=== PATIENT | female | born 1935 | race Caucasian/White ===

== ENCOUNTER 2017-08-07 05:30 | Emergency (ER) | payer OTHER, MEDICARE ==
[~2017-08-07] VITALS: Ht 137.2 cm; Wt 36.6 kg
[2017-08-07] MEDS ORDERED: PRINZIDE 10-121 EACH PO (05:42)
[2017-08-07] MEDS ORDERED: ATIVAN0.5 MG PO (05:42)
[2017-08-07 08:27] LABS: APPEARANCE SL.HAZY ((CLEAR)); BILIRUBIN NEGATIVE; BLOOD SMALL; COLOR YELLOW ((YELLOW)); GLUCOSE (STRIP) NEGATIVE; KETONES NEGATIVE; LEUKOCYTES LARGE; NITRITE NEGATIVE; PROTEIN (STRIP) NEGATIVE; SPECIFIC GRAVITY 1.015 (1.000-1.030); UROBILINOGEN 0.2 MG/DL (0.2-1.0)
[2017-08-07 08:31] LABS: BACTERIA 1+ /HPF; EPITHELIAL CELLS 1+ /HPF; HYALINE CASTS 0-5 /LPF; MUCUS TRACE /LPF; RED BLOOD CELLS 0-5 /HPF (0-5); UCUL ADDED? YES
[2017-08-07] MEDS ORDERED: BACTRIM,SEPT1 TABLET PO (08:55)
[2017-08-07] MEDS ORDERED: ULTRAM50 MG PO (08:56)
[2017-08-07] MEDS ORDERED: LIDODERM 5% P1 PATCH TD (08:56)
[2017-08-07 09:26] VITALS: BP 107/78
== END 2017-08-07 09:27 | disposition home or self-care (01) ==
LOC: EME 05:30
PROVIDERS: Physician Assistant
DX: S39.012A Strain of muscle, fascia and tendon of lower back, initial encounter (principal); N39.0 Urinary tract infection, site not specified; B96.89 Other specified bacterial agents as the cause of diseases classified elsewhere; I10 Essential (primary) hypertension; X50.0XXA Overexertion from strenuous movement or load, initial encounter
CPT/HCPCS: 71101; 81003; 87086